=== PATIENT | male | born 1960 | race Caucasian/White ===

== ENCOUNTER 2016-11-04 06:05 | Inpatient (IN) | payer SELFPAY ==
--- NOTE | 2016-11-04 06:21 | EDM.PDOC ---
<Andrea Rod - Last Filed: 11/04/16 06:56> ED HPI GENERAL MEDICAL PROBLEM - General Chief Complaint: Chest Pain Stated Complaint: CHEST PAINS Time Seen by Provider: 11/04/16 06:18 Source of Information: Reports: Patient - History of Present Illness INITIAL COMMENTS - FREE TEXT/NARRATIVE: he presents with 24 hour history of upper abdominal pain. He has had some slight nausea and a feeling of slight dyspnea and a feeling of irregular rhythm. He has tried alleve and aspirin without improvement. pain has been constant for over 24 hours and seems to radiate towards the chest. chest/epigastric Pain Score (Numeric/FACES): 10 - Related Data Allergies Allergy/AdvReac Type Severity Reaction Status Date / Time fentanyl Allergy Anaphylactic Verified 11/04/16 06:10 Shock prochlorperazine Allergy Anaphylactic Verified 11/04/16 06:10 [From Compazine] Shock flu shot Allergy Anaphylactic Uncoded 11/04/16 06:10 Shock Home Meds: Home Meds . [No Known Home Meds] 11/04/16 [History] Past Medical History Cardiovascular History: Reports: Arrhythmia. Denies: CAD, Heart Failure, High Cholesterol, Hypertension, [place] Respiratory History: Denies: COPD Gastrointestinal History: Denies: Cirrhosis Genitourinary History: Denies: Chronic Renal Insuffiency Musculoskeletal History: Denies: RA Neurological History: Denies: CVA, MS Endocrine/Metabolic History: Denies: Diabetes, Type I, Diabetes, Type II Social & Family History - Tobacco Use Smoking Status *Q: Current Every Day Smoker - Alcohol Use Alcohol Use Comment: he states that his last drink was about 4 days ago. He sometimes drinks about 3 beers in a day but does not drink alcohol everyday. ED ROS GENERAL - Review of Systems Review Of Systems: See Below Constitutional: Denies: Fever, Chills Respiratory: Reports: Shortness of Breath. Denies: Cough Cardiovascular: Reports: Chest Pain GI/Abdominal: Reports: Nausea. Denies: Black Stool, Bloody Stool, Hematemesis, Hematochezia ED EXAM, GI/ABD - Physical Exam Exam: See Below General Appearance: Alert, No Apparent Distress Throat/Mouth: Other (dental decay) Respiratory/Chest: No Respiratory Distress, Lungs Clear Cardiovascular: Regular Rate, Rhythm, No Murmur GI/Abdominal: Soft, Tenderness (moderate diffuse upper abdominal tenderness; positive Sood's sign) Neurological: Alert, Oriented Comments: ekg: sinus tachycardia rate 203/minute; no ST changes suggestive of ischemia or injury Course - Vital Signs Last Recorded V/S: Last Vital Signs Temp 36.6 C 11/04/16 06:10 Pulse 95 11/04/16 08:53 Resp 18 11/04/16 08:53 BP 144/101 H 11/04/16 08:53 Pulse Ox 93 L 11/04/16 08:53 - Orders/Labs/Meds Orders: Active Orders 24 hr Category Date Time Status Patient Status [ADT] Stat ADT 11/04/16 09:02 Active EKG 12 Lead [EKG Documentation Completion] [RC] STAT Care 11/04/16 06:29 Active EKG 12 Lead [EKG Documentation Completion] [RC] STAT Care 11/04/16 08:00 Active Abdomen Pelvis w Cont [CT] Stat Exams 11/04/16 08:59 Ordered CXR [Chest 1V Frontal] [CR] Stat Exams 11/04/16 06:29 Taken CULTURE BLOOD [BC] Stat Lab 11/04/16 08:05 Received CULTURE BLOOD [BC] Stat Lab 11/04/16 08:16 Received Sodium Chloride 0.9% [Normal Saline] 1,000 ml Med 11/04/16 08:59 Active IV .Bolus Sodium Chloride 0.9% [Saline Flush] Med 11/04/16 06:26 Active 10 ml FLUSH ASDIRECTED PRN Sodium Chloride 0.9% [Saline Flush] Med 11/04/16 06:26 Active 2.5 ml FLUSH ASDIRECTED PRN Blood Culture x2 Reflex Set [OM.PC] Stat Oth 11/04/16 07:57 Ordered Saline Lock Insert [OM.PC] Stat Oth 11/04/16 06:26 Ordered Medication Orders Sodium Chloride (Normal Saline) 1,000 mls @ 999 mls/hr IV .Bolus ONE Stop: 11/04/16 09:59 Last Admin: 11/04/16 09:02 Dose: 999 mls/hr Sodium Chloride (Saline Flush) 10 ml FLUSH ASDIRECTED PRN PRN Reason: Keep Vein Open Sodium Chloride (Saline Flush) 2.5 ml FLUSH ASDIRECTED PRN PRN Reason: Keep Vein Open Labs: Laboratory Tests 06/11/04/16 11/04/16 Range/Units 06:11 06:11 06:11 WBC 20.45 H (4.0-11.0) K/uL RBC 5.78 (4.50-5.90) M/uL Hgb 19.5 H (13.0-17.0) g/dL Hct 53.8 H (38.0-50.0) % MCV 93.1 (80.0-98.0) fL MCH 33.7 H (27.0-32.0) pg MCHC 36.2 (31.0-37.0) g/dL RDW Std Deviation 46.7 (28.0-62.0) fl RDW Coeff of Nicolasa 14 (11.0-15.0) % Plt Count 163 (150-400) K/uL MPV 11.60 (7.40-12.00) fL Neut % (Auto) 84.3 H (48.0-80.0) % Lymph % (Auto) 9.0 L (16.0-40.0) % [place] % (Auto) 6.5 (0.0-15.0) % Eos % (Auto) 0.1 (0.0-7.0) % Baso % (Auto) 0.1 (0.0-1.5) % Neut # (Auto) 17.2 H (1.4-5.7) K/uL Lymph # (Auto) 1.8 (0.6-2.4) K/uL [place] # (Auto) 1.3 H (0.0-0.8) K/uL Eos # (Auto) 0.0 (0.0-0.7) K/uL Baso # (Auto) 0.0 (0.0-0.1) K/uL Nucleated RBC % 0.0 /100WBC Nucleated RBCs # 0 K/uL Lactate (0.20-2.00) mmol/L Sodium 135 L (136-146) mmol/L Potassium 4.0 (3.5-5.1) mmol/L Chloride 100 (98-110) mmol/L Carbon Dioxide 21 (21-31) mmol/L BUN 15 (6.0-23.0) mg/dL Creatinine 0.9 (0.6-1.5) mg/dL Est Cr Clr Drug Dosing 88.67 mL/min Estimated GFR (MDRD) > 60.0 ml/min Glucose 120 H (60-110) mg/dL Calcium 9.8 (8.8-10.8) mg/dL Magnesium 1.8 (1.5-2.3) mEq/L Total Bilirubin 1.1 (0.1-1.5) mg/dL AST 25 (5-40) IU/L ALT 40 (8-54) IU/L Alkaline Phosphatase 96 (40-150) Troponin I < 0.10 (0.0-0.29) NG/ML Total Protein 8.7 H (6.0-8.0) g/dL Albumin 4.7 (3.5-5.0) g/dL Globulin 4.0 H (2.0-3.5) g/dL Albumin/Globulin Ratio 1.2 L (1.3-2.8) Amylase 101 H (10-90) U/L Lipase 186 H (7-80) U/L Urine Color Urine Appearance Urine pH (5.0-8.0) Ur Specific [place] (1.001-1.035) Urine Protein (NEGATIVE) mg/dL Urine Glucose (UA) (NEGATIVE) mg/dL Urine Ketones (NEGATIVE) mg/dL Urine Occult Blood (NEGATIVE) Urine Nitrite (NEGATIVE) Urine Bilirubin (NEGATIVE) Urine Urobilinogen (<2.0) EU/dL Ur Leukocyte Esterase (NEGATIVE) Urine RBC (0-2/HPF) Urine WBC (0-5/HPF) Ur Epithelial Cells (NONE-FEW) Amorphous Sediment (NEGATIVE) Urine Bacteria (NEGATIVE) 11/04/16 11/04/16 Range/Units 08:00 08:16 WBC (4.0-11.0) K/uL RBC (4.50-5.90) M/uL Hgb (13.0-17.0) g/dL Hct (38.0-50.0) % MCV (80.0-98.0) fL MCH (27.0-32.0) pg MCHC (31.0-37.0) g/dL RDW Std Deviation (28.0-62.0) fl RDW Coeff of Nicolasa (11.0-15.0) % Plt Count (150-400) K/uL MPV (7.40-12.00) fL Neut % (Auto) (48.0-80.0) % Lymph % (Auto) (16.0-40.0) % [place] % (Auto) (0.0-15.0) % Eos % (Auto) (0.0-7.0) % Baso % (Auto) (0.0-1.5) % Neut # (Auto) (1.4-5.7) K/uL Lymph # (Auto) (0.6-2.4) K/uL [place] # (Auto) (0.0-0.8) K/uL Eos # (Auto) (0.0-0.7) K/uL Baso # (Auto) (0.0-0.1) K/uL Nucleated RBC % /100WBC Nucleated RBCs # K/uL Lactate 1.2 (0.20-2.00) mmol/L Sodium (136-146) mmol/L Potassium (3.5-5.1) mmol/L Chloride (98-110) mmol/L Carbon Dioxide (21-31) mmol/L BUN (6.0-23.0) mg/dL Creatinine (0.6-1.5) mg/dL Est Cr Clr Drug Dosing mL/min Estimated GFR (MDRD) ml/min Glucose (60-110) mg/dL Calcium (8.8-10.8) mg/dL Magnesium (1.5-2.3) mEq/L Total Bilirubin (0.1-1.5) mg/dL AST (5-40) IU/L ALT (8-54) IU/L Alkaline Phosphatase (40-150) Troponin I (0.0-0.29) NG/ML Total Protein (6.0-8.0) g/dL Albumin (3.5-5.0) g/dL Globulin (2.0-3.5) g/dL Albumin/Globulin Ratio (1.3-2.8) Amylase (10-90) U/L Lipase (7-80) U/L Urine Color YELLOW Urine Appearance CLEAR Urine pH 6.0 (5.0-8.0) Ur Specific [place] >= 1.030 (1.001-1.035) Urine Protein 30 (NEGATIVE) mg/dL Urine Glucose (UA) NEGATIVE (NEGATIVE) mg/dL Urine Ketones NEGATIVE (NEGATIVE) mg/dL Urine Occult Blood NEGATIVE (NEGATIVE) Urine Nitrite NEGATIVE (NEGATIVE) Urine Bilirubin NEGATIVE (NEGATIVE) Urine Urobilinogen 0.2 (<2.0) EU/dL Ur Leukocyte Esterase NEGATIVE (NEGATIVE) Urine RBC 0-2 (0-2/HPF) Urine WBC 0-1 (0-5/HPF) Ur Epithelial Cells FEW (NONE-FEW) Amorphous Sediment FEW (NEGATIVE) Urine Bacteria FEW (NEGATIVE) Meds: Medications Generic Name Dose Route Start Last Admin Trade Name Freq PRN Reason Stop Dose Admin Sodium Chloride 1,000 mls @ 999 mls/hr 11/04/16 08:59 11/04/16 09:02 Normal Saline IV 11/04/16 09:59 999 mls/hr .Bolus ONE Administration Sodium Chloride 10 ml 11/04/16 06:26 Saline Flush FLUSH ASDIRECTED PRN Keep Vein Open Sodium Chloride 2.5 ml 11/04/16 06:26 Saline Flush FLUSH ASDIRECTED PRN Keep Vein Open Discontinued Medications Generic Name Dose Route Start Last Admin Trade Name Freq PRN Reason Stop Dose Admin Acetaminophen 500 mg 11/04/16 06:49 11/04/16 06:56 Tylenol Extra Strength PO 11/04/16 06:50 500 mg ONETIME ONE Administration Diphenhydramine HCl 25 mg 11/04/16 06:49 11/04/16 06:55 Benadryl IVPUSH 11/04/16 06:50 25 mg ONETIME ONE Administration Hydralazine HCl 10 mg 11/04/16 08:09 11/04/16 08:13 Apresoline IVPUSH 11/04/16 08:10 10 mg ONETIME ONE Administration Hydromorphone HCl 1 mg 11/04/16 08:42 11/04/16 08:47 Dilaudid IVPUSH 11/04/16 08:43 1 mg ONETIME ONE Administration Morphine Sulfate 4 mg 11/04/16 06:26 11/04/16 06:34 Morphine IVPUSH 11/04/16 06:27 4 mg ONETIME ONE Administration Nitroglycerin 1 gm 11/04/16 06:47 11/04/16 06:56 Nitro-Bid 2% TOP 11/04/16 06:48 1 gm ONETIME ONE Administration Ondansetron HCl 4 mg 11/04/16 06:26 11/04/16 06:34 Zofran IVPUSH 11/04/16 06:27 4 mg ONETIME ONE Administration Ondansetron HCl 4 mg 11/04/16 08:42 11/04/16 08:47 Zofran IVPUSH 11/04/16 08:43 4 mg ONETIME ONE Administration Sucralfate 1 gm 11/04/16 06:26 11/04/16 06:42 Carafate PO 11/04/16 06:27 1 gm ONETIME ONE Administration - Radiology Interpretation Free Text/Narrative:: I discussed case with Dr Ramirez who will be accepting care. Andrea Rod MD Departure - Departure Disposition: Refer to Observation Clinical Impression: Abdominal pain, Hypertension - Discharge Information Forms: ED Department Discharge - My Orders Last 24 Hours: My Active Orders 11/04/16 07:57 Blood Culture x2 Reflex Set [OM.PC] Stat 11/04/16 08:00 EKG 12 Lead [EKG Documentation Completion] [RC] STAT 11/04/16 08:05 CULTURE BLOOD [BC] Stat 11/04/16 08:16 CULTURE BLOOD [BC] Stat 11/04/16 08:59 Abdomen Pelvis w Cont [CT] Stat Sodium Chloride 0.9% [Normal Saline] 1,000 ml IV .Bolus 11/04/16 09:02 Patient Status [ADT] Stat - Assessment/Plan Last 24 Hours: My Active Orders 11/04/16 07:57 Blood Culture x2 Reflex Set [OM.PC] Stat 11/04/16 08:00 EKG 12 Lead [EKG Documentation Completion] [RC] STAT 11/04/16 08:05 CULTURE BLOOD [BC] Stat 11/04/16 08:16 CULTURE BLOOD [BC] Stat 11/04/16 08:59 Abdomen Pelvis w Cont [CT] Stat Sodium Chloride 0.9% [Normal Saline] 1,000 ml IV .Bolus 11/04/16 09:02 Patient Status [ADT] Stat <Joseph Ramirez J - Last Filed: 11/04/16 09:11> Course - Vital Signs Text/Narrative:: Patient had recurrent epigastric abdominal pain labs were remarkable for leukocytosis with white count 20,000 slightly elevated amylase lipase and liver function tests patient will be admitted to medicine with consult general surgery CT abdomen and pelvis were ordered with IV contrast patient be transferred to floor CT will be reported to primary care/general surgery from floor patient is improvement of pain status post Lodder 1 mg and Zofran 4 mg Departure - Departure Time of Disposition: 09:10 Condition: Good
[2016-11-04] MEDS ORDERED: Sodium Chloride 0.9% 10 ML Syringe FLUSH PRN (06:26)
[2016-11-04] MEDS ORDERED: Sodium Chloride 0.9% 2.5 ML Syringe FLUSH PRN (06:26)
[2016-11-04] MEDS ORDERED: Morphine 2 MG/ML Syringe IVPUSH ONE (06:26)
[2016-11-04] MEDS ORDERED: Ondansetron 4 MG/2 ML SDV IVPUSH ONE ×2 (06:26→08:42)
[2016-11-04] MEDS ORDERED: Sucralfate Suspension 1 GM/10 ML Cup PO ONE (06:26)
[2016-11-04] MEDS ORDERED: Nitroglycerin 2% Oint 1 GM UD Packet TOP ONE (06:47)
[2016-11-04] MEDS ORDERED: diphenhydrAMINE 50 MG/ML SDV IVPUSH ONE (06:49)
[2016-11-04] MEDS ORDERED: Acetaminophen 500 MG Tab PO ONE (06:49)
[2016-11-04 06:50] LABS: CHLORIDE,CL 100 mmol/L (98-110); SODIUM,NA 135 mmol/L (136-146)
[2016-11-04] MEDS ORDERED: hydrALAZINE 20 MG/ML SDV IVPUSH ONE (08:09)
[2016-11-04] MEDS ORDERED: HYDROmorphone 1 MG/ML Syringe IVPUSH ONE (08:42)
--- NOTE | 2016-11-04 08:51 | US ---
EXAMINATION: Right upper quadrant ultrasound HISTORY: Pain COMPARISON: None TECHNIQUE: Grayscale and color Doppler images obtained of the right upper quadrant. FINDINGS: The pancreas is not well visualized. The liver is moderately increased in generalized ech otexture without a focal hepatic mass. Common bile duct measures 4 mm. The gallbladder wall thicknes s is normal. No pericholecystic fluid or shadowing gallstones. The right kidney measures 11.7 cm sanjuana e-to-pole without evidence of hydronephrosis. There is no abdominal ascites. Sonographic Sood sign is reported positive. IMPRESSION: 1. Reported positive sonographic Sood sign without secondary signs of cholecystitis. 2. Moderate fatty infiltration of the liver.
[2016-11-04] MEDS ORDERED: Sodium Chloride 0.9% 1,000 ML IV ONE ×3 (08:59→10:21)
[2016-11-04] MEDS ORDERED: Iopamidol 755 MG/ML 500 ML Multipack Bottle IVPUSH STA (09:55)
--- NOTE | 2016-11-04 09:55 | CR ---
EXAM DATE: 11/04/16 PATIENT'S AGE: 56 Patient: [facility] Facility: [place], [place] Site . Site : [id number] Study: XRay Chest [id number]/29/2017 6:55:33 AM Ordering Physician: Doctor Zurita Final Report: INDICATION: Shortness of breath. Upper abdominal pain. COMPARISON: none TECHNIQUE: Portable AP erect chest performed at 6:48 a.m. FINDINGS: The lungs are clear. There is no evidence of pneumothorax or free intraperitoneal air. The heart, mediastinum and pulmonary vessels are of normal size. There is no evidence of pleural fluid. IMPRESSION: Negative chest. Dictated by Joseph Velásquez MD @ Nov 04 2016 6:58AM (Electronic Signature) Report Signed by Proxy. DELMY
--- NOTE | 2016-11-04 10:40 | CT ---
CT of the abdomen and pelvis with contrast. HISTORY: Left upper quadrant pain TECHNIQUE: Axial CT images were obtained of the abdomen and pelvis following administration of 100 m L of Isovue-370 in the right hand without complication. Coronal and sagittal reconstructions obtaine d. FINDINGS: There is atelectasis noted within the lung bases. There is a small hiatal hernia. Tiny cyst within the left hepatic lobe otherwise the liver appears unremarkable. Spleen, adrenal gla nds, and gallbladder appear normal. There is stranding within the left upper quadrant with a low-den sity area within the tail of the pancreas. There is a filling defect noted within the adjacent splen ic vein. No bulky retroperitoneal lymphadenopathy. No organized fluid collection. The kidneys enhance and function symmetrically without evidence of obstructive uropathy. The large and small bowel are normal in caliber without evidence of obstruction. No pericolonic infl ammation or stranding. The appendix appears normal. There is no bulky pelvic lymphadenopathy. The ur inary bladder is mostly decompressed. The prostate is mildly prominent. No suspicious osseous abnormalities identified. IMPRESSION: 1. Moderate stranding near the tail of the pancreas with a hypoenhancing component noted within the tail of the pancreas. 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 Follow-up imaging may be be neficial to rule out an underlying neoplastic process. 2. 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 3. Small hiatal hernia. 4. Mild prostatomegaly.
--- NOTE | 2016-11-04 12:25 | PCM.HP ---
H&P History of Present Illness - General Date of Service: 11/04/16 Admit Problem/Dx: Acute pancreatitis Source of Information: Patient History Limitations: Reports: No Limitations - History of Present Illness Initial Comments - Free Text/Narative: This 56 year old male, otherwise healthy, presented to the ED with complaints of abdominal pain. He reports this pain started on Tuesday morning, sort of dull in nature, it waxed and waned intermittently throughout the weekend and then yesterday morning it worsened to 10/10 sharp shooting pain. He reports same nausea with emesis x1. He did not eat anything since yesterday. He reports fevers at home measuring 101, he would take tylenol and then it would improve and slowly climb again. He reports nothing makes the pain better, but movement and breathing increases the pain. He confirms alcohol use, but drinks 2-3 beers 1-2 x per week, but denies daily drinking. He does smoke 1/2 ppk and denies recreational drug use. He cuco any cardiac or pumonary history. No DM or liver or renal disease. His father had a hx of cancer, but the source was not known due to the extensive nature of it when it was diagnosed. In the ED, leukocytosis noted, 20,450, hgb 19.5 Hct 53.8, amylase 101, lipase 186, U negative. Lactate 1.2, Glucose 120. Abdominal U/S obtained with showed common bile duct 4mm, no cholelithasis or gallbladder wall thickening. CT abdomen was also obtained which reported moderate stranding near the tail of the pancreas with a hypoechancing component noted with the tail of the pancreas , likely representing pancreatitis with necrosis, follow up imaging maybe beneficial to rule out underlying neoplastic process, also noted is a partial thrombus of the adjacent splenic vein, small hiatal hernia and mild prostatomegaly. He was admitted for acute pancreatitis and acute partial thrombis in splenic vein. Has no current PCP. chest/epigastric Pain Score (Numeric/FACES): 3 - Related Data Allergies/Adverse Reactions: Allergies Allergy/AdvReac Type Severity Reaction Status Date / Time fentanyl Allergy Itching Verified 11/04/16 10:59 prochlorperazine Allergy Anaphylactic Verified 11/04/16 06:10 [From Compazine] Shock flu shot Allergy Anaphylactic Uncoded 11/04/16 06:10 Shock Home Medications: Home Meds Acetaminophen [Tylenol Extra Strength] 1,000 mg PO PRN 11/04/16 [History] Aspirin [Lo-Dose Aspirin EC] 81 mg PO DAILY 11/04/16 [History] Naproxen Sodium [Aleve] 220 mg PO PRN 11/04/16 [History] Past Medical History HEENT History: Reports: Hard of Hearing Cardiovascular History: Reports: Arrhythmia (unknown type, but "happens rarely". ). Denies: Blood Clots/VTE/DVT, Heart Failure, High Cholesterol, Hypertension, MD Respiratory History: Reports: None. Denies: Asthma, COPD, PE Gastrointestinal History: Reports: None. Denies: Bowel Obstruction, GERD, GI Bleed, Inflammatory Bowel Disease, Irritable Bowel Syndrome, Pancreatitis Genitourinary History: Reports: None. Denies: Chronic Renal Insuffiency Musculoskeletal History: Reports: Arthritis, Fracture Other Musculoskeletal History: Voices multiple fractures Neurological History: Reports: None. Denies: CVA, Headaches, Chronic, MS Endocrine/Metabolic History: Denies: Diabetes, Type I, Diabetes, Type II, Hypothyroidism Hematologic History: Denies: Anticoagulation Therapy, Autoimmune Thrombocytopenic Purpura, Bleeding Disorder - Infectious Disease History Infectious Disease History: Reports: Chicken Pox, Measles, Mumps - Past Surgical History HEENT Surgical History: Reports: Adenoidectomy, Tonsillectomy Cardiovascular Surgical History: Reports: None GI Surgical History: Reports: Hernia, Abdominal Male Surgical History: Reports: None Musculoskeletal Surgical History: Reports: Hip Replacement Other Musculoskeletal Surgeries/Procedures:: Partial right hip joint replacement Social & Family History - Family History Family Medical History: Noncontributory - Tobacco Use Smoking Status *Q: Current Every Day Smoker Years of Tobacco use: 30 Packs/Tins Daily: 0.5 Used Tobacco, but Quit: No Second Hand Smoke Exposure: No - Caffeine Use Caffeine Use: Reports: Coffee, Energy Drinks - Alcohol Use Date of Last Drink: 10/30/16 Time of Last Drink: 20:00 Alcohol Use Frequency: Weekly (1-2 x per week.) - Recreational Drug Use Recreational Drug Use: No - Living Situation & Occupation Living situation: Reports: ( in [facility] 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 Denies: Headaches, Sinus Congestion, Sore Throat Pulmonary: Reports: No Symptoms. Denies: Shortness of Breath Cardiovascular: Reports: Chest Pain (radiates to chest from abdomen) Gastrointestinal: Reports: Abdominal Pain, Decreased Appetite, Distension, Nausea, Vomiting. Denies: Black Stool, Bloody Stool Genitourinary: Reports: No Symptoms. Denies: Dysuria, Frequency, Burning, Pain Musculoskeletal: Reports: No Symptoms. Denies: Neck Pain Skin: Reports: No Symptoms. Denies: Pallor, Rash Psychiatric: Reports: No Symptoms. Denies: Confusion Neurological: Reports: No Symptoms. Denies: Confusion Hematologic/Lymphatic: Reports: No Symptoms. Denies: Easy Bleeding Immunologic: Reports: No Symptoms Exam - Exam Exam: See Below - Vital Signs Vital Signs: Last Vital Signs Temp 96 F 11/04/16 10:00 Pulse 101 H 11/04/16 10:00 Resp 18 11/04/16 10:00 BP 146/91 H 11/04/16 10:00 Pulse Ox 96 11/04/16 10:00 Weight: 87.18 kg - Exam General: Alert, Oriented, Cooperative, Other (non toxic appearing) HEENT: Conjunctiva Clear, Mucosa Moist & [place], Pupils Equal, Pupils Reactive, Other (missing teeth, broken teeth ) Neck: Supple, +2 Carotid Pulse wo Bruit, Full Range of Motion. No: Lymphadenopathy, JVD Lungs: Clear to Auscultation, Normal Respiratory Effort Cardiovascular: Regular Rate, Regular Rhythm, Normal S1, Normal S2. No: Irregular Rhythm, Tachycardia, Systolic Murmur Abdomen: Normal Bowel Sounds, Soft, Tenderness (diffuse, mostly located to epigastric region and radiates to back and lower abdomen.) Rectal (Males) Exam: Normal Exam, Normal Rectal Tone, Heme - Stool. No: Black Stool, Bloody Stool, Hemorrhoids Extremities: Normal Inspection, Normal Pulses. No: Calf Tenderness, Edema Skin: Warm, Dry, Intact Neurological: Cranial Nerves Intact Neuro Extensive - Mental Status: Alert, Oriented x3, Normal Mood/Affect, Normal Cognition Neuro Extensive - Motor, Sensory, Reflexes: CN II-XII Intact Psychiatric: Alert, Normal Affect, Normal Mood - Patient Data Result Diagrams: 11/04/16 06:11 11/04/16 06:11 *Q Meaningful Use (ADM) - VTE *Q VTE Criteria *Q: - VTE Risk Assess *Q Each Risk Factor Represents 1 Point: Age 41 - 59 years Total Score 1 Point Risk Factors: 1 Each Risk Factor Represents 2 Points: None Total Score 2 Point Risk Factors: 0 Each Risk Factor Represents 3 Points: None Total Score 3 Point Risk Factors: 0 Each Risk Factor Represents 5 Points: None Total Score 5 Point Risk Factors: 0 Venous Thromboembolism Risk Factor Score *Q: 1 - Stroke *Q Stroke Criteria *Q: - AMI *Q AMI Criteria *Q: - Problem List (1) Acute pancreatitis with uninfected necrosis SNOMED Code(s): 761358969, 589091450 ICD Code: K85.91 - ACUTE PANCREATITIS WITH UNINFECTED NECROSIS, UNSPECIFIED Status: Acute Current Visit: Yes Qualifiers: Pancreatitis type: unspecified pancreatitis type Qualified Code(s): K85.91 - Acute pancreatitis with uninfected necrosis, unspecified (2) Splenic vein thrombosis SNOMED Code(s): 36786744 ICD Code: I82.890 - ACUTE EMBOLISM AND THROMBOSIS OF OTHER SPECIFIED VEINS Status: Acute Current Visit: Yes (3) Atypical chest pain SNOMED Code(s): 963067023 ICD Code: R07.89 - OTHER CHEST PAIN Status: Acute Current Visit: Yes (4) Hypertension SNOMED Code(s): 05259421 ICD Code: I10 - ESSENTIAL (PRIMARY) HYPERTENSION Status: Acute Current Visit: Yes Qualifiers: Hypertension type: essential hypertension Qualified Code(s): I10 - Essential (primary) hypertension Problem List Initiated/Reviewed/Updated: Yes Orders Last 24hrs: Active Orders 24 hr Category Date Time Status NPO [Nothing Per Oral Diet] [DIET] Diet 11/04/16 Dinner Active CBC WITH AUTO DIFF [HEME] DAILY Lab 11/05/16 05:00 Ordered CBC WITH AUTO DIFF [HEME] DAILY Lab 11/06/16 05:00 Ordered CBC WITH AUTO DIFF [HEME] DAILY Lab 11/07/16 05:00 Ordered CBC WITH AUTO DIFF [HEME] DAILY Lab 11/08/16 05:00 Ordered COMPREHENSIVE METABOLIC PN,CMP [CHEM] DAILY Lab 11/05/16 05:00 Ordered COMPREHENSIVE METABOLIC PN,CMP [CHEM] DAILY Lab 11/06/16 05:00 Ordered COMPREHENSIVE METABOLIC PN,CMP [CHEM] DAILY Lab 11/07/16 05:00 Ordered COMPREHENSIVE METABOLIC PN,CMP [CHEM] DAILY Lab 11/08/16 05:00 Ordered HYDROmorphone [Dilaudid] Med 11/04/16 12:06 Active 1 mg IVPUSH Q2H PRN Medication Orders Hydromorphone HCl (Dilaudid) 1 mg IVPUSH Q2H PRN PRN Reason: Pain Sodium Chloride (Normal Saline) 1,000 mls @ 200 mls/hr IV ASDIRECTED LUIS CARLOS Sodium Chloride (Saline Flush) 10 ml FLUSH ASDIRECTED PRN PRN Reason: Keep Vein Open Sodium Chloride (Saline Flush) 2.5 ml FLUSH ASDIRECTED PRN PRN Reason: Keep Vein Open Assessment/Plan Comment:: This 56 year old male admitted for acute pancreatitis and splenic vein thrombosis 1. Acute pancreatitis with necrosis: Given total of 3 L bolus upon arrival. Will continue with fluid resuscitation at NS 200 ml/hr. Analgesia. Takes no home medications, triglycerides elevated 389, does drink alcohol but does not admit to excessive use, no gall bladder disease noted and no history of. NPO for now, anti-emetics PRN. He was notified of needing follow up imaging and aware of CT findings. Will monitor leukocytosis for now, no antibiotics unless he becomes febrile. No documented fevers since ED admission. Monitor labs in am. Will recheck hgb this evening. 2. Splenic vein thrombosis: No hx of. Hemoccult, negative will place on Lovenox 1mg/kg BID in the short term to decrease propagation of current partial thrombosis. Will monitor. 3. Chest pain: Possible radiation from pancreatitis. Will monitor on telemetry, trend troponins. 4. HTN: New, may be acute due to pain. Lopressor IV PRN, monitor closely. Dispo: 3-4 days pending improvement.
[2016-11-04] MEDS: HYDROmorphone 1 MG/ML Syringe IVPUSH PRN ×5 (12:29→22:23)
[2016-11-04] MEDS: Sodium Chloride 0.9% 1,000 ML IV SCH ×3 (12:37→22:15)
[2016-11-04] MEDS ORDERED: Metoprolol Tartrate 5 MG/5 ML SDV IVPUSH PRN (14:10)
[2016-11-04] MEDS ORDERED: Albuterol/Ipratropium 3.0-0.5 MG/3 ML Neb Soln NEB PRN (14:25)
[2016-11-04] MEDS: Enoxaparin 100 MG/1 ML Syringe SUBCUT SCH ×2 (14:31→22:13)
[2016-11-04] MEDS: Ondansetron 4 MG/2 ML SDV IVPUSH PRN (22:21)
[2016-11-05] MEDS: HYDROmorphone 1 MG/ML Syringe IVPUSH PRN ×9 (00:55→23:22)
[2016-11-05] MEDS: Sodium Chloride 0.9% 1,000 ML IV SCH ×5 (03:16→23:28)
[2016-11-05] MEDS: Ondansetron 4 MG/2 ML SDV IVPUSH PRN ×2 (03:55→09:54)
[2016-11-05 06:12] LABS: CHLORIDE,CL 106 mmol/L (98-110); SODIUM,NA 138 mmol/L (136-146)
--- NOTE | 2016-11-05 08:01 | PCM.PN ---
- General Info Date of Service: 11/05/16 Admission Dx/Problem (Free Text): Acute pancreatitis Subjective Update: Pain improving slightly, now 5/10. No longer feeling nauseated. Has no chest pain or SOB. No fevers noted. Functional Status: Reports: pain controlled, ambulating, urinating - Review of Systems General: Reports: No Symptoms. Denies: Fever HEENT: Denies: sinus congestion, sore throat Pulmonary: Reports: no symptoms. Denies: shortness of breath, cough, sputum Cardiovascular: Denies: Chest Pain, Palpitations, Edema Gastrointestinal: Reports: Abdominal pain (diffuse, located to LUQ and epigastric region, radiates to mid back), Flatus. Denies: Nausea, Vomiting Genitourinary: Reports: no symptoms. Denies: dysuria, frequency, burning Musculoskeletal: Reports: back pain Skin: Reports: no symptoms Neurological: Reports: No Symptoms Psychiatric: Reports: no symptoms - Patient Data Vitals - most recent: Last Vital Signs Temp 99.2 F 11/05/16 04:00 Pulse 97 11/04/16 16:00 Resp 19 11/05/16 04:00 BP 142/91 H 11/05/16 04:00 Pulse Ox 92 L 11/05/16 04:00 Weight - most recent: 87.18 kg I&O - last 24 hours: Intake & Output 11/04/16 11/05/16 11/05/16 22:59 06:59 14:59 Intake Total 4881 1000 Output Total 0 975 Balance 4881 25 Lab Results last 24 hrs: Laboratory Results - last 24 hr 11/04/16 11/04/16 11/04/16 Range/Units 14:19 20:14 20:14 WBC (4.0-11.0) K/uL RBC (4.50-5.90) M/uL Hgb 15.0 (13.0-17.0) g/dL Hct 43.7 (38.0-50.0) % MCV (80.0-98.0) fL MCH (27.0-32.0) pg MCHC (31.0-37.0) g/dL RDW Std Deviation (28.0-62.0) fl RDW Coeff of Nicolasa (11.0-15.0) % Plt Count (150-400) K/uL MPV (7.40-12.00) fL Neut % (Auto) (48.0-80.0) % Lymph % (Auto) (16.0-40.0) % [place] % (Auto) (0.0-15.0) % Eos % (Auto) (0.0-7.0) % Baso % (Auto) (0.0-1.5) % Neut # (Auto) (1.4-5.7) K/uL Lymph # (Auto) (0.6-2.4) K/uL [place] # (Auto) (0.0-0.8) K/uL Eos # (Auto) (0.0-0.7) K/uL Baso # (Auto) (0.0-0.1) K/uL Nucleated RBC % /100WBC Nucleated RBCs # K/uL Sodium (136-146) mmol/L Potassium (3.5-5.1) mmol/L Chloride (98-110) mmol/L Carbon Dioxide (21-31) mmol/L BUN (6.0-23.0) mg/dL Creatinine (0.6-1.5) mg/dL Est Cr Clr Drug Dosing mL/min Estimated GFR (MDRD) ml/min Glucose (60-110) mg/dL Calcium (8.8-10.8) mg/dL Total Bilirubin (0.1-1.5) mg/dL AST (5-40) IU/L ALT (8-54) IU/L Alkaline Phosphatase (40-150) Troponin I < 0.10 < 0.10 (0.0-0.29) NG/ML Total Protein (6.0-8.0) g/dL Albumin (3.5-5.0) g/dL Globulin (2.0-3.5) g/dL Albumin/Globulin Ratio (1.3-2.8) 11/05/16 11/05/16 Range/Units 04:38 04:38 WBC 18.55 H (4.0-11.0) K/uL RBC 4.43 L (4.50-5.90) M/uL Hgb 14.5 (13.0-17.0) g/dL Hct 42.9 (38.0-50.0) % MCV 96.8 (80.0-98.0) fL MCH 32.7 H (27.0-32.0) pg MCHC 33.8 (31.0-37.0) g/dL RDW Std Deviation 52.5 (28.0-62.0) fl RDW Coeff of Nicolasa 15 (11.0-15.0) % Plt Count 147 L (150-400) K/uL MPV 12.40 H (7.40-12.00) fL Neut % (Auto) 87.1 H (48.0-80.0) % Lymph % (Auto) 6.3 L (16.0-40.0) % [place] % (Auto) 6.4 (0.0-15.0) % Eos % (Auto) 0.1 (0.0-7.0) % Baso % (Auto) 0.1 (0.0-1.5) % Neut # (Auto) 16.2 H (1.4-5.7) K/uL Lymph # (Auto) 1.2 (0.6-2.4) K/uL [place] # (Auto) 1.2 H (0.0-0.8) K/uL Eos # (Auto) 0.0 (0.0-0.7) K/uL Baso # (Auto) 0.0 (0.0-0.1) K/uL Nucleated RBC % 0.0 /100WBC Nucleated RBCs # 0 K/uL Sodium 138 (136-146) mmol/L Potassium 4.0 (3.5-5.1) mmol/L Chloride 106 (98-110) mmol/L Carbon Dioxide 20 L (21-31) mmol/L BUN 12 (6.0-23.0) mg/dL Creatinine 0.8 (0.6-1.5) mg/dL Est Cr Clr Drug Dosing 99.75 mL/min Estimated GFR (MDRD) > 60.0 ml/min Glucose 77 (60-110) mg/dL Calcium 7.8 L (8.8-10.8) mg/dL Total Bilirubin 1.5 (0.1-1.5) mg/dL AST 23 (5-40) IU/L ALT 24 (8-54) IU/L Alkaline Phosphatase 85 (40-150) Troponin I (0.0-0.29) NG/ML Total Protein 6.0 (6.0-8.0) g/dL Albumin 3.6 (3.5-5.0) g/dL Globulin 2.4 (2.0-3.5) g/dL Albumin/Globulin Ratio 1.5 (1.3-2.8) [place]on Results last 24 hrs: Microbiology 11/04/16 13:14 Stool Occult Blood (LARON) - Final Stool / Feces NEGATIVE OCCULT BLOOD Med Orders - Current: Current Medications Albuterol/Ipratropium (Duoneb 3.0-0.5 Mg/3 Ml) 3 ml NEB Q4HRRT PRN PRN Reason: Shortness Of Breath/wheezing Enoxaparin Sodium (Lovenox) 90 mg SUBCUT Q12HR LUIS CARLOS Last Admin: 11/04/16 22:13 Dose: 90 mg Hydromorphone HCl (Dilaudid) 1 mg IVPUSH Q2H PRN PRN Reason: Pain Last Admin: 11/05/16 06:59 Dose: 1 mg Sodium Chloride (Normal Saline) 1,000 mls @ 200 mls/hr IV ASDIRECTED LUIS CARLOS Last Admin: 11/05/16 03:16 Dose: 200 mls/hr Metoprolol Tartrate (Lopressor) 5 mg IVPUSH Q6H PRN PRN Reason: Hypertension Ondansetron HCl (Zofran) 4 mg IVPUSH Q4H PRN PRN Reason: Nausea Last Admin: 11/05/16 03:55 Dose: 4 mg Sodium Chloride (Saline Flush) 10 ml FLUSH ASDIRECTED PRN PRN Reason: Keep Vein Open Sodium Chloride (Saline Flush) 2.5 ml FLUSH ASDIRECTED PRN PRN Reason: Keep Vein Open Discontinued Medications Acetaminophen (Tylenol Extra Strength) 500 mg PO ONETIME ONE Stop: 11/04/16 06:50 Last Admin: 11/04/16 06:56 Dose: 500 mg Diphenhydramine HCl (Benadryl) 25 mg IVPUSH ONETIME ONE Stop: 11/04/16 06:50 Last Admin: 11/04/16 06:55 Dose: 25 mg Hydralazine HCl (Apresoline) 10 mg IVPUSH ONETIME ONE Stop: 11/04/16 08:10 Last Admin: 11/04/16 08:13 Dose: 10 mg Hydromorphone HCl (Dilaudid) 1 mg IVPUSH ONETIME ONE Stop: 11/04/16 08:43 Last Admin: 11/04/16 08:47 Dose: 1 mg Sodium Chloride (Normal Saline) 1,000 mls @ 999 mls/hr IV .Bolus ONE Stop: 11/04/16 09:59 Last Admin: 11/04/16 09:02 Dose: 999 mls/hr Sodium Chloride (Normal Saline) 1,000 mls @ 999 mls/hr IV .Bolus ONE Stop: 11/04/16 11:19 Last Admin: 11/04/16 10:27 Dose: 999 mls/hr Sodium Chloride (Normal Saline) 1,000 mls @ 999 mls/hr IV .Bolus ONE Stop: 11/04/16 11:21 Last Admin: 11/04/16 11:30 Dose: 999 mls/hr Iopamidol (Isovue Multipack-370 (76%)) 100 ml IVPUSH ONETIME STA Stop: 11/04/16 09:56 Last Admin: 11/04/16 09:56 Dose: 100 ml Morphine Sulfate (Morphine) 4 mg IVPUSH ONETIME ONE Stop: 11/04/16 06:27 Last Admin: 11/04/16 06:34 Dose: 4 mg Nitroglycerin (Nitro-Bid 2%) 1 gm TOP ONETIME ONE Stop: 11/04/16 06:48 Last Admin: 11/04/16 06:56 Dose: 1 gm Ondansetron HCl (Zofran) 4 mg IVPUSH ONETIME ONE Stop: 11/04/16 06:27 Last Admin: 11/04/16 06:34 Dose: 4 mg Ondansetron HCl (Zofran) 4 mg IVPUSH ONETIME ONE Stop: 11/04/16 08:43 Last Admin: 11/04/16 08:47 Dose: 4 mg Sucralfate (Carafate) 1 gm PO ONETIME ONE Stop: 11/04/16 06:27 Last Admin: 11/04/16 06:42 Dose: 1 gm - Exam General: alert, oriented, cooperative, no acute distress Neck: supple Lungs: Clear to auscultation, Normal respiratory effort Cardiovascular: Regular Rate, Regular Rhythm Abdomen: bowel sounds present, soft, no tenderness, tenderness (LUQ and epigastric), distension Extremities: no edema, normal pulses Neurological: no new focal deficit Psy/Mental Status: alert, normal affect, normal mood - Problem List & Annotations (1) Acute pancreatitis with uninfected necrosis SNOMED Code(s): 473356040, 395988781 Code(s): K85.91 - ACUTE PANCREATITIS WITH UNINFECTED NECROSIS, UNSPECIFIED Status: Acute Current Visit: Yes Qualifiers: Pancreatitis type: unspecified pancreatitis type Qualified Code(s): K85.91 - Acute pancreatitis with uninfected necrosis, unspecified (2) Splenic vein thrombosis SNOMED Code(s): 97102448 Code(s): I82.890 - ACUTE EMBOLISM AND THROMBOSIS OF OTHER SPECIFIED VEINS Status: Acute Current Visit: Yes (3) Atypical chest pain SNOMED Code(s): 359399183 Code(s): R07.89 - OTHER CHEST PAIN Status: Resolved Current Visit: Yes (4) Hypertension SNOMED Code(s): 78431118 Code(s): I10 - ESSENTIAL (PRIMARY) HYPERTENSION Status: Acute Current Visit: Yes Qualifiers: Hypertension type: essential hypertension Qualified Code(s): I10 - Essential (primary) hypertension - Problem List Review Problem List Initiated/Reviewed/Updated: Yes - My Orders Last 24 Hours: My Active Orders 11/04/16 12:06 HYDROmorphone [Dilaudid] 1 mg IVPUSH Q2H PRN 11/04/16 13:49 Notify Provider Consults [RC] ASDIRECTED 11/04/16 13:53 Telemetry Monitoring [Cardiac Monitoring] [RC] Q8H 11/04/16 14:02 Communication Order [RC] PRN 11/04/16 14:10 Metoprolol Tartrate [Lopressor] 5 mg IVPUSH Q6H PRN 11/04/16 14:15 Enoxaparin [Lovenox] 90 mg SUBCUT Q12HR 11/04/16 14:25 Intake and Output [RC] Q12H Up With Assistance [RC] ASDIRECTED VTE/DVT Education [RC] DAILY Vital Signs [RC] Q4H Albuterol/Ipratropium [DuoNeb 3.0-0.5 MG/3 ML] 3 ml NEB Q4HRRT PRN Ondansetron [Zofran] 4 mg IVPUSH Q4H PRN Resuscitation Status Routine 11/04/16 14:26 RT Aerosol Therapy [RC] ASDIRECTED 11/04/16 Dinner NPO [Nothing Per Oral Diet] [DIET] 11/06/16 05:00 CBC WITH AUTO DIFF [HEME] DAILY COMPREHENSIVE METABOLIC PN,CMP [CHEM] DAILY 11/07/16 05:00 CBC WITH AUTO DIFF [HEME] DAILY COMPREHENSIVE METABOLIC PN,CMP [CHEM] DAILY 11/08/16 05:00 CBC WITH AUTO DIFF [HEME] DAILY COMPREHENSIVE METABOLIC PN,CMP [CHEM] DAILY - Plan Plan:: This 56 year old male admitted for acute pancreatitis and splenic vein thrombosis 1. Acute pancreatitis with necrosis: Continue with fluid resuscitation at NS 200 ml/hr. Analgesia. Likely alcohol induced. Continue bowel rest., anti- emetics PRN. leukocytosis improving, no antibiotics unless he becomes febrile. Remains Afebrile. Monitor labs in am. 2. Splenic vein thrombosis: No hx of. Continue anticoagulation with Lovenox 1mg/ kg BID in the short term to decrease propagation of current partial thrombosis. Will monitor. 3. Chest pain: ACS ruled out.Troponins negative. 4. HTN: Has improved slight. Lopressor IV PRN, monitor closely. Conitnued elevation by be chronic or continued pain. Dispo: 3-4 days pending improvement.
[2016-11-05] MEDS: Enoxaparin 100 MG/1 ML Syringe SUBCUT SCH ×2 (08:33→20:55)
[2016-11-06] MEDS: HYDROmorphone 1 MG/ML Syringe IVPUSH PRN ×3 (02:06→07:40)
[2016-11-06] MEDS: Sodium Chloride 0.9% 1,000 ML IV SCH ×4 (04:37→20:14)
[2016-11-06 06:48] LABS: CHLORIDE,CL 107 mmol/L (98-110); SODIUM,NA 134 mmol/L (136-146)
[2016-11-06] MEDS: Enoxaparin 100 MG/1 ML Syringe SUBCUT SCH ×2 (08:16→20:29)
--- NOTE | 2016-11-06 10:56 | PCM.PN ---
- Review of Systems Systems Review Comment:: abdominal pain improving, mainly in left lower quadrant. - Patient Data Vitals - most recent: Last Vital Signs Temp 36.0 C 11/06/16 08:00 Pulse 95 11/06/16 08:00 Resp 16 11/06/16 08:00 BP 123/76 11/06/16 08:00 Pulse Ox 91 L 11/06/16 08:00 Weight - most recent: 87.18 kg I&O - last 24 hours: Intake & Output 11/05/16 11/06/16 11/06/16 22:59 06:59 14:59 Intake Total 2465 2450 1000 Output Total 535 460 Balance 1930 1990 1000 Lab Results last 24 hrs: Laboratory Results - last 24 hr 11/06/16 11/06/16 Range/Units 06:02 06:02 WBC 15.44 H (4.0-11.0) K/uL RBC 3.90 L (4.50-5.90) M/uL Hgb 12.4 L (13.0-17.0) g/dL Hct 38.3 (38.0-50.0) % MCV 98.2 H (80.0-98.0) fL MCH 31.8 (27.0-32.0) pg MCHC 32.4 (31.0-37.0) g/dL RDW Std Deviation 52.5 (28.0-62.0) fl RDW Coeff of Nicolasa 15 (11.0-15.0) % Plt Count 138 L (150-400) K/uL MPV 11.30 (7.40-12.00) fL Neut % (Auto) 80.9 H (48.0-80.0) % Lymph % (Auto) 8.7 L (16.0-40.0) % Keith % (Auto) 10.0 (0.0-15.0) % Eos % (Auto) 0.3 (0.0-7.0) % Baso % (Auto) 0.1 (0.0-1.5) % Neut # (Auto) 12.5 H (1.4-5.7) K/uL Lymph # (Auto) 1.3 (0.6-2.4) K/uL Keith # (Auto) 1.5 H (0.0-0.8) K/uL Eos # (Auto) 0.0 (0.0-0.7) K/uL Baso # (Auto) 0.0 (0.0-0.1) K/uL Nucleated RBC % 0.0 /100WBC Nucleated RBCs # 0 K/uL Sodium 134 L (136-146) mmol/L Potassium 3.7 (3.5-5.1) mmol/L Chloride 107 (98-110) mmol/L Carbon Dioxide 16 L (21-31) mmol/L BUN 12 (6.0-23.0) mg/dL Creatinine 0.7 (0.6-1.5) mg/dL Est Cr Clr Drug Dosing 114.00 mL/min Estimated GFR (MDRD) > 60.0 ml/min Glucose 82 (60-110) mg/dL Calcium 8.0 L (8.8-10.8) mg/dL Total Bilirubin 1.0 (0.1-1.5) mg/dL AST 20 (5-40) IU/L ALT 20 (8-54) IU/L Alkaline Phosphatase 67 (40-150) Total Protein 6.0 (6.0-8.0) g/dL Albumin 3.2 L (3.5-5.0) g/dL Globulin 2.8 (2.0-3.5) g/dL Albumin/Globulin Ratio 1.1 L (1.3-2.8) Lipase 51 (7-80) U/L Med Orders - Current: Current Medications Albuterol/Ipratropium (Duoneb 3.0-0.5 Mg/3 Ml) 3 ml NEB Q4HRRT PRN PRN Reason: Shortness Of Breath/wheezing Enoxaparin Sodium (Lovenox) 90 mg SUBCUT Q12HR [facility] Last Admin: 11/06/16 08:16 Dose: 90 mg Sodium Chloride (Normal Saline) 1,000 mls @ 200 mls/hr IV ASDIRECTED [facility] Last Admin: 11/06/16 09:46 Dose: 200 mls/hr Metoprolol Tartrate (Lopressor) 5 mg IVPUSH Q6H PRN PRN Reason: Hypertension Ondansetron HCl (Zofran) 4 mg IVPUSH Q4H PRN PRN Reason: Nausea Last Admin: 11/05/16 09:54 Dose: 4 mg Oxycodone HCl (Oxycodone) 5 mg PO Q4H PRN PRN Reason: Pain Sodium Chloride (Saline Flush) 10 ml FLUSH ASDIRECTED PRN PRN Reason: Keep Vein Open Sodium Chloride (Saline Flush) 2.5 ml FLUSH ASDIRECTED PRN PRN Reason: Keep Vein Open Discontinued Medications Acetaminophen (Tylenol Extra Strength) 500 mg PO ONETIME ONE Stop: 11/04/16 06:50 Last Admin: 11/04/16 06:56 Dose: 500 mg Diphenhydramine HCl (Benadryl) 25 mg IVPUSH ONETIME ONE Stop: 11/04/16 06:50 Last Admin: 11/04/16 06:55 Dose: 25 mg Hydralazine HCl (Apresoline) 10 mg IVPUSH ONETIME ONE Stop: 11/04/16 08:10 Last Admin: 11/04/16 08:13 Dose: 10 mg Hydromorphone HCl (Dilaudid) 1 mg IVPUSH ONETIME ONE Stop: 11/04/16 08:43 Last Admin: 11/04/16 08:47 Dose: 1 mg Hydromorphone HCl (Dilaudid) 1 mg IVPUSH Q2H PRN PRN Reason: Pain Last Admin: 11/06/16 07:40 Dose: 1 mg Sodium Chloride (Normal Saline) 1,000 mls @ 999 mls/hr IV .Bolus ONE Stop: 11/04/16 09:59 Last Admin: 11/04/16 09:02 Dose: 999 mls/hr Sodium Chloride (Normal Saline) 1,000 mls @ 999 mls/hr IV .Bolus ONE Stop: 11/04/16 11:19 Last Admin: 11/04/16 10:27 Dose: 999 mls/hr Sodium Chloride (Normal Saline) 1,000 mls @ 999 mls/hr IV .Bolus ONE Stop: 11/04/16 11:21 Last Admin: 11/04/16 11:30 Dose: 999 mls/hr Iopamidol (Isovue Multipack-370 (76%)) 100 ml IVPUSH ONETIME STA Stop: 11/04/16 09:56 Last Admin: 11/04/16 09:56 Dose: 100 ml Morphine Sulfate (Morphine) 4 mg IVPUSH ONETIME ONE Stop: 11/04/16 06:27 Last Admin: 11/04/16 06:34 Dose: 4 mg Nitroglycerin (Nitro-Bid 2%) 1 gm TOP ONETIME ONE Stop: 11/04/16 06:48 Last Admin: 11/04/16 06:56 Dose: 1 gm Ondansetron HCl (Zofran) 4 mg IVPUSH ONETIME ONE Stop: 11/04/16 06:27 Last Admin: 11/04/16 06:34 Dose: 4 mg Ondansetron HCl (Zofran) 4 mg IVPUSH ONETIME ONE Stop: 11/04/16 08:43 Last Admin: 11/04/16 08:47 Dose: 4 mg Sucralfate (Carafate) 1 gm PO ONETIME ONE Stop: 11/04/16 06:27 Last Admin: 11/04/16 06:42 Dose: 1 gm - Exam General: alert, oriented Lungs: Clear to auscultation, Normal respiratory effort Cardiovascular: Regular Rate, Regular Rhythm Abdomen: bowel sounds present, soft, no tenderness, no distension Extremities: no edema Skin: warm, dry, intact - Problem List Review Problem List Initiated/Reviewed/Updated: Yes - My Orders Last 24 Hours: My Active Orders 11/06/16 10:53 oxyCODONE 5 mg PO Q4H PRN - Plan Plan:: This 56 year old male admitted for acute pancreatitis and splenic vein thrombosis 1. Acute pancreatitis with necrosis: continue IV fluids and bowel rest, pain is improving. 2. Splenic vein thrombosis: on Lovenox 1mg/kg BID in the short term to decrease propagation of current partial thrombosis. Will monitor. Dispo: 3-4 days pending improvement.
[2016-11-06] MEDS: oxyCODONE 5 MG Tab PO PRN ×3 (11:32→20:31)
[2016-11-07] MEDS: Sodium Chloride 0.9% 1,000 ML IV SCH ×2 (01:28→06:37)
[2016-11-07] MEDS: oxyCODONE 5 MG Tab PO PRN (03:19)
[2016-11-07] MEDS: Ondansetron 4 MG/2 ML SDV IVPUSH PRN (03:19)
[2016-11-07 06:56] LABS: CHLORIDE,CL 106 mmol/L (98-110); SODIUM,NA 135 mmol/L (136-146)
[2016-11-07] MEDS: Enoxaparin 100 MG/1 ML Syringe SUBCUT SCH ×2 (08:34→20:50)
--- NOTE | 2016-11-07 12:02 | PCM.PN ---
- Review of Systems Systems Review Comment:: abdominal pain improving, reports constipation - Patient Data Vitals - most recent: Last Vital Signs Temp 36.1 C 11/07/16 08:00 Pulse 77 11/07/16 08:00 Resp 16 11/07/16 08:00 BP 150/92 H 11/07/16 08:00 Pulse Ox 92 L 11/07/16 08:00 Weight - most recent: 87.18 kg I&O - last 24 hours: Intake & Output 11/06/16 11/07/16 11/07/16 22:59 06:59 14:59 Intake Total 2999 2100 Output Total 880 1360 Balance 211 740 Lab Results last 24 hrs: Laboratory Results - last 24 hr 11/07/16 11/07/16 Range/Units 05:52 05:52 WBC 13.41 H (4.0-11.0) K/uL RBC 3.81 L (4.50-5.90) M/uL Hgb 12.3 L (13.0-17.0) g/dL Hct 36.6 L (38.0-50.0) % MCV 96.1 (80.0-98.0) fL MCH 32.3 H (27.0-32.0) pg MCHC 33.6 (31.0-37.0) g/dL RDW Std Deviation 50.8 (28.0-62.0) fl RDW Coeff of Nicolasa 14 (11.0-15.0) % Plt Count 171 (150-400) K/uL MPV 11.30 (7.40-12.00) fL Neut % (Auto) 79.1 (48.0-80.0) % Lymph % (Auto) 10.1 L (16.0-40.0) % Towns % (Auto) 10.2 (0.0-15.0) % Eos % (Auto) 0.4 (0.0-7.0) % Baso % (Auto) 0.2 (0.0-1.5) % Neut # (Auto) 10.6 H (1.4-5.7) K/uL Lymph # (Auto) 1.4 (0.6-2.4) K/uL Towns # (Auto) 1.4 H (0.0-0.8) K/uL Eos # (Auto) 0.1 (0.0-0.7) K/uL Baso # (Auto) 0.0 (0.0-0.1) K/uL Nucleated RBC % 0.0 /100WBC Nucleated RBCs # 0 K/uL Sodium 135 L (136-146) mmol/L Potassium 3.6 (3.5-5.1) mmol/L Chloride 106 (98-110) mmol/L Carbon Dioxide 18 L (21-31) mmol/L BUN 8 (6.0-23.0) mg/dL Creatinine 0.7 (0.6-1.5) mg/dL Est Cr Clr Drug Dosing 114.00 mL/min Estimated GFR (MDRD) > 60.0 ml/min Glucose 83 (60-110) mg/dL Calcium 7.9 L (8.8-10.8) mg/dL Total Bilirubin 0.9 (0.1-1.5) mg/dL AST 26 (5-40) IU/L ALT 23 (8-54) IU/L Alkaline Phosphatase 99 (40-150) Total Protein 5.7 L (6.0-8.0) g/dL Albumin 2.8 L (3.5-5.0) g/dL Globulin 2.9 (2.0-3.5) g/dL Albumin/Globulin Ratio 1.0 L (1.3-2.8) Med Orders - Current: Current Medications Albuterol/Ipratropium (Duoneb 3.0-0.5 Mg/3 Ml) 3 ml NEB Q4HRRT PRN PRN Reason: Shortness Of Breath/wheezing Enoxaparin Sodium (Lovenox) 90 mg SUBCUT Q12HR [facility] Last Admin: 11/07/16 08:34 Dose: 90 mg Metoprolol Tartrate (Lopressor) 5 mg IVPUSH Q6H PRN PRN Reason: Hypertension Ondansetron HCl (Zofran) 4 mg IVPUSH Q4H PRN PRN Reason: Nausea Last Admin: 11/07/16 03:19 Dose: 4 mg Oxycodone HCl (Oxycodone) 5 mg PO Q4H PRN PRN Reason: Pain Last Admin: 11/07/16 03:19 Dose: 5 mg Sodium Chloride (Saline Flush) 10 ml FLUSH ASDIRECTED PRN PRN Reason: Keep Vein Open Sodium Chloride (Saline Flush) 2.5 ml FLUSH ASDIRECTED PRN PRN Reason: Keep Vein Open Discontinued Medications Acetaminophen (Tylenol Extra Strength) 500 mg PO ONETIME ONE Stop: 11/04/16 06:50 Last Admin: 11/04/16 06:56 Dose: 500 mg Diphenhydramine HCl (Benadryl) 25 mg IVPUSH ONETIME ONE Stop: 11/04/16 06:50 Last Admin: 11/04/16 06:55 Dose: 25 mg Hydralazine HCl (Apresoline) 10 mg IVPUSH ONETIME ONE Stop: 11/04/16 08:10 Last Admin: 11/04/16 08:13 Dose: 10 mg Hydromorphone HCl (Dilaudid) 1 mg IVPUSH ONETIME ONE Stop: 11/04/16 08:43 Last Admin: 11/04/16 08:47 Dose: 1 mg Hydromorphone HCl (Dilaudid) 1 mg IVPUSH Q2H PRN PRN Reason: Pain Last Admin: 11/06/16 07:40 Dose: 1 mg Sodium Chloride (Normal Saline) 1,000 mls @ 999 mls/hr IV .Bolus ONE Stop: 11/04/16 09:59 Last Admin: 11/04/16 09:02 Dose: 999 mls/hr Sodium Chloride (Normal Saline) 1,000 mls @ 999 mls/hr IV .Bolus ONE Stop: 11/04/16 11:19 Last Admin: 11/04/16 10:27 Dose: 999 mls/hr Sodium Chloride (Normal Saline) 1,000 mls @ 999 mls/hr IV .Bolus ONE Stop: 11/04/16 11:21 Last Admin: 11/04/16 11:30 Dose: 999 mls/hr Sodium Chloride (Normal Saline) 1,000 mls @ 200 mls/hr IV ASDIRECTED [facility] Last Admin: 11/07/16 06:37 Dose: 200 mls/hr Iopamidol (Isovue Multipack-370 (76%)) 100 ml IVPUSH ONETIME STA Stop: 11/04/16 09:56 Last Admin: 11/04/16 09:56 Dose: 100 ml Morphine Sulfate (Morphine) 4 mg IVPUSH ONETIME ONE Stop: 11/04/16 06:27 Last Admin: 11/04/16 06:34 Dose: 4 mg Nitroglycerin (Nitro-Bid 2%) 1 gm TOP ONETIME ONE Stop: 11/04/16 06:48 Last Admin: 11/04/16 06:56 Dose: 1 gm Ondansetron HCl (Zofran) 4 mg IVPUSH ONETIME ONE Stop: 11/04/16 06:27 Last Admin: 11/04/16 06:34 Dose: 4 mg Ondansetron HCl (Zofran) 4 mg IVPUSH ONETIME ONE Stop: 11/04/16 08:43 Last Admin: 11/04/16 08:47 Dose: 4 mg Sucralfate (Carafate) 1 gm PO ONETIME ONE Stop: 11/04/16 06:27 Last Admin: 11/04/16 06:42 Dose: 1 gm - Exam General: alert, oriented Lungs: Clear to auscultation, Normal respiratory effort Cardiovascular: Regular Rate, Regular Rhythm Abdomen: bowel sounds present, soft, no tenderness, no distension Extremities: no edema Skin: warm, dry, intact Neurological: no new focal deficit - Problem List Review Problem List Initiated/Reviewed/Updated: Yes - My Orders Last 24 Hours: My Active Orders 11/07/16 Dinner Advance Diet Instructions [DIET] - Plan Plan:: This 56 year old male admitted for acute pancreatitis and splenic vein thrombosis 1. Acute pancreatitis with necrosis: pain improving, on oral pain medications, will advance diet as tolerated 2. Splenic vein thrombosis: on Lovenox 1mg/kg BID in the short term to decrease propagation of current partial thrombosis. Will monitor. Dispo: likely discharge home tomorrow.
[2016-11-07] MEDS ORDERED: Acetaminophen 325 MG Tab PO PRN (22:00)
[2016-11-08 06:20] LABS: CHLORIDE,CL 106 mmol/L (98-110); SODIUM,NA 140 mmol/L (136-146)
[2016-11-08 07:42] VITALS: BP 183/110
[2016-11-08] MEDS: Enoxaparin 100 MG/1 ML Syringe SUBCUT SCH (09:14)
[2016-11-08] MEDS ORDERED: Potassium Chloride 20 MEQ Tab.ER PO ONE (09:45)
[2016-11-08] MEDS ORDERED: Rivaroxaban 15 MG Tab PO SCH (12:15)
--- NOTE | 2016-11-08 12:19 | PCM.DCSUM1 ---
Discharge Summary - Hospital Course Brief History: This 56 year old male, otherwise healthy, presented to the ED with complaints of abdominal pain. He reports this pain started on Tuesday morning, sort of dull in nature, it waxed and waned intermittently throughout the weekend and then yesterday morning it worsened to 10/10 sharp shooting pain. He reports same nausea with emesis x1. He did not eat anything since yesterday. He reports fevers at home measuring 101, he would take tylenol and then it would improve and slowly climb again. He reports nothing makes the pain better, but movement and breathing increases the pain. He confirms alcohol use, but drinks 2-3 beers 1-2 x per week, but denies daily drinking. He does smoke 1/ 2 ppk and denies recreational drug use. He cuco any cardiac or pumonary history. No DM or liver or renal disease. His father had a hx of cancer, but the source was not known due to the extensive nature of it when it was diagnosed. In the ED, leukocytosis noted, 20,450, hgb 19.5 Hct 53.8, amylase 101, lipase 186, Ua negative. Lactate 1.2, Glucose 120. Abdominal U/S obtained with showed common bile duct 4mm, no cholelithasis or gallbladder wall thickening. CT abdomen was also obtained which reported moderate stranding near the tail of the pancreas with a hypoechancing component noted with the tail of the pancreas, likely representing pancreatitis with necrosis, follow up imaging maybe beneficial to rule out underlying neoplastic process, also noted is a partial thrombus of the adjacent splenic vein, small hiatal hernia and mild prostatomegaly. He was admitted for acute pancreatitis and acute partial thrombis in splenic vein. Has no current PCP. - Discharge Data Discharge Date: 11/08/16 Discharge Disposition: Home, Self-Care 01 Condition: Good - Discharge Diagnosis/Problem(s) (1) Acute pancreatitis with uninfected necrosis SNOMED Code(s): 432073663, 462101563 ICD Code: K85.91 - ACUTE PANCREATITIS WITH UNINFECTED NECROSIS, UNSPECIFIED Status: Acute Qualifiers: Pancreatitis type: unspecified pancreatitis type Qualified Code(s): K85.91 - Acute pancreatitis with uninfected necrosis, unspecified (2) Splenic vein thrombosis SNOMED Code(s): 53264206 ICD Code: I82.890 - ACUTE EMBOLISM AND THROMBOSIS OF OTHER SPECIFIED VEINS Status: Acute (3) Atypical chest pain SNOMED Code(s): 011192058 ICD Code: R07.89 - OTHER CHEST PAIN Status: Resolved (4) Hypertension SNOMED Code(s): 17473541 ICD Code: I10 - ESSENTIAL (PRIMARY) HYPERTENSION Status: Acute Qualifiers: Hypertension type: essential hypertension Qualified Code(s): I10 - Essential (primary) hypertension - Patient Instructions Diet: Regular Diet as Tolerated (low fat) Activity: As Tolerated Driving: May Drive Today Showering/Bathing: May Shower Notify Provider of: Fever, Increased Pain, Swelling and Redness, Drainage, Nausea and/or Vomiting Other/Special Instructions: Avoid alcohol - Discharge Plan Prescriptions/Med Rec: Rivaroxaban [Xarelto] 15 mg PO BID #41 tablet Home Medications: Home Meds Rivaroxaban [Xarelto] 15 mg PO BID #41 tablet 11/08/16 [Rx] Patient Handouts: Rivaroxaban oral tablets, Acute Pancreatitis, [id number], Chest Wall Pain, [id number], Abdominal Pain, Adult, [id number], Hypertension , [id number] Referrals: Jack Hawley DO [Physician] - 11/11/16 11:30 am - Discharge Summary/Plan Comment DC Time >30 min.: No Discharge Summary/Plan Comment: Discharge Diagnoses Alcoholic pancreatitis with necrosis Splenic vein thrombosis Reyes was admitted was treated with IV fluid resuscitation, analgesia and antiemetics for pancreatitis. Abd U/S obtained which was negative for gallbladder disease or stones. CT did show necrosis present, will need follow up CT imaging. Once pain improved diet was started and has improved since. He is tolerating regular diet today and eager for discharge. Regarding partial splenic vein thrombosis, he was anticoagulated with Lovenox during his stay and transitioned to Xarelto today. He will need to remain on anticoagulation for approximately 6 months. He will be set up with PCP here in town and a follow up will be scheduled. he was educated to stay on low fat diet and avid alcohol consumption. He is to return to clinic or ED if concerns should arise. - General Info Date of Service: 11/08/16 Admission Dx/Problem (Free Text: Acute pancreatitis Subjective Update: No further abdominal pain, tolerating regular diet. Ready for discharge. No chest pain or palpitations or SOB. Functional Status: Reports: pain controlled, tolerating diet, ambulating, urinating - Review of Systems General: Reports: No Symptoms. Denies: Fever Pulmonary: Reports: no symptoms. Denies: shortness of breath Cardiovascular: Reports: No Symptoms. Denies: Chest Pain Gastrointestinal: Reports: No symptoms. Denies: Abdominal pain, Constipation, Decreased appetite Genitourinary: Reports: no symptoms. Denies: dysuria, frequency, burning Musculoskeletal: Reports: no symptoms Skin: Reports: no symptoms Neurological: Reports: No Symptoms Psychiatric: Reports: no symptoms - Patient Data Vitals - Most Recent: Last Vital Signs Temp 98.1 F 11/08/16 07:41 Pulse 89 11/08/16 07:41 Resp 16 11/08/16 07:41 BP 183/110 H 11/08/16 07:41 Pulse Ox 94 L 11/08/16 07:41 Weight - Most Recent: 87.18 kg I&O - Last 24 hours: Intake & Output 11/07/16 11/08/16 11/08/16 22:59 06:59 14:59 Intake Total 440 520 Output Total 925 400 Balance -485 120 Lab Results - Last 24 hrs: Laboratory Results - last 24 hr 11/08/16 11/08/16 Range/Units 05:38 05:38 WBC 11.08 H (4.0-11.0) K/uL RBC 4.15 L (4.50-5.90) M/uL Hgb 13.4 (13.0-17.0) g/dL Hct 38.6 (38.0-50.0) % MCV 93.0 (80.0-98.0) fL MCH 32.3 H (27.0-32.0) pg MCHC 34.7 (31.0-37.0) g/dL RDW Std Deviation 47.4 (28.0-62.0) fl RDW Coeff of Nicolasa 14 (11.0-15.0) % Plt Count 200 (150-400) K/uL MPV 10.50 (7.40-12.00) fL Neut % (Auto) 76.8 (48.0-80.0) % Lymph % (Auto) 11.0 L (16.0-40.0) % Cooper % (Auto) 11.2 (0.0-15.0) % Eos % (Auto) 0.5 (0.0-7.0) % Baso % (Auto) 0.5 (0.0-1.5) % Neut # (Auto) 8.5 H (1.4-5.7) K/uL Lymph # (Auto) 1.2 (0.6-2.4) K/uL Cooper # (Auto) 1.2 H (0.0-0.8) K/uL Eos # (Auto) 0.1 (0.0-0.7) K/uL Baso # (Auto) 0.1 (0.0-0.1) K/uL Nucleated RBC % 0.0 /100WBC Nucleated RBCs # 0 K/uL Sodium 140 (136-146) mmol/L Potassium 2.9 L (3.5-5.1) mmol/L Chloride 106 (98-110) mmol/L Carbon Dioxide 24 (21-31) mmol/L BUN 5 L (6.0-23.0) mg/dL Creatinine 0.7 (0.6-1.5) mg/dL Est Cr Clr Drug Dosing 114.00 mL/min Estimated GFR (MDRD) > 60.0 ml/min Glucose 110 (60-110) mg/dL Calcium 8.3 L (8.8-10.8) mg/dL Total Bilirubin 1.2 (0.1-1.5) mg/dL AST 63 H (5-40) IU/L ALT 60 H (8-54) IU/L Alkaline Phosphatase 139 (40-150) Total Protein 5.8 L (6.0-8.0) g/dL Albumin 3.0 L (3.5-5.0) g/dL Globulin 2.8 (2.0-3.5) g/dL Albumin/Globulin Ratio 1.1 L (1.3-2.8) Med Orders - Current: Current Medications Acetaminophen (Tylenol) 650 mg PO Q4H PRN PRN Reason: Pain Last Admin: 11/08/16 01:28 Dose: 650 mg Albuterol/Ipratropium (Duoneb 3.0-0.5 Mg/3 Ml) 3 ml NEB Q4HRRT PRN PRN Reason: Shortness Of Breath/wheezing Ondansetron HCl (Zofran) 4 mg IVPUSH Q4H PRN PRN Reason: Nausea Last Admin: 11/07/16 03:19 Dose: 4 mg Oxycodone HCl (Oxycodone) 5 mg PO Q4H PRN PRN Reason: Pain Last Admin: 11/07/16 03:19 Dose: 5 mg Rivaroxaban (Xarelto) 15 mg PO BID [facility] Sodium Chloride (Saline Flush) 10 ml FLUSH ASDIRECTED PRN PRN Reason: Keep Vein Open Sodium Chloride (Saline Flush) 2.5 ml FLUSH ASDIRECTED PRN PRN Reason: Keep Vein Open Discontinued Medications Acetaminophen (Tylenol Extra Strength) 500 mg PO ONETIME ONE Stop: 11/04/16 06:50 Last Admin: 11/04/16 06:56 Dose: 500 mg Diphenhydramine HCl (Benadryl) 25 mg IVPUSH ONETIME ONE Stop: 11/04/16 06:50 Last Admin: 11/04/16 06:55 Dose: 25 mg Enoxaparin Sodium (Lovenox) 90 mg SUBCUT Q12HR [facility] Last Admin: 11/08/16 09:14 Dose: Not Given Hydralazine HCl (Apresoline) 10 mg IVPUSH ONETIME ONE Stop: 11/04/16 08:10 Last Admin: 11/04/16 08:13 Dose: 10 mg Hydromorphone HCl (Dilaudid) 1 mg IVPUSH ONETIME ONE Stop: 11/04/16 08:43 Last Admin: 11/04/16 08:47 Dose: 1 mg Hydromorphone HCl (Dilaudid) 1 mg IVPUSH Q2H PRN PRN Reason: Pain Last Admin: 11/06/16 07:40 Dose: 1 mg Sodium Chloride (Normal Saline) 1,000 mls @ 999 mls/hr IV .Bolus ONE Stop: 11/04/16 09:59 Last Admin: 11/04/16 09:02 Dose: 999 mls/hr Sodium Chloride (Normal Saline) 1,000 mls @ 999 mls/hr IV .Bolus ONE Stop: 11/04/16 11:19 Last Admin: 11/04/16 10:27 Dose: 999 mls/hr Sodium Chloride (Normal Saline) 1,000 mls @ 999 mls/hr IV .Bolus ONE Stop: 11/04/16 11:21 Last Admin: 11/04/16 11:30 Dose: 999 mls/hr Sodium Chloride (Normal Saline) 1,000 mls @ 200 mls/hr IV ASDIRECTED [facility] Last Admin: 11/07/16 06:37 Dose: 200 mls/hr Iopamidol (Isovue Multipack-370 (76%)) 100 ml IVPUSH ONETIME STA Stop: 11/04/16 09:56 Last Admin: 11/04/16 09:56 Dose: 100 ml Metoprolol Tartrate (Lopressor) 5 mg IVPUSH Q6H PRN PRN Reason: Hypertension Morphine Sulfate (Morphine) 4 mg IVPUSH ONETIME ONE Stop: 11/04/16 06:27 Last Admin: 11/04/16 06:34 Dose: 4 mg Nitroglycerin (Nitro-Bid 2%) 1 gm TOP ONETIME ONE Stop: 11/04/16 06:48 Last Admin: 11/04/16 06:56 Dose: 1 gm Ondansetron HCl (Zofran) 4 mg IVPUSH ONETIME ONE Stop: 11/04/16 06:27 Last Admin: 11/04/16 06:34 Dose: 4 mg Ondansetron HCl (Zofran) 4 mg IVPUSH ONETIME ONE Stop: 11/04/16 08:43 Last Admin: 11/04/16 08:47 Dose: 4 mg Potassium Chloride (Klor-Con M20) 40 meq PO ONETIME ONE Stop: 11/08/16 09:46 Last Admin: 11/08/16 09:49 Dose: 40 meq Sucralfate (Carafate) 1 gm PO ONETIME ONE Stop: 11/04/16 06:27 Last Admin: 11/04/16 06:42 Dose: 1 gm - Exam General: Reports: alert, oriented, cooperative, no acute distress HEENT: Reports: Pupils equal, Pupils reactive, EOMI, Mucous membr. moist/pink Neck: Reports: supple Lungs: Reports: Clear to auscultation, Normal respiratory effort Cardiovascular: Reports: Regular Rate, Regular Rhythm Abdomen: Reports: bowel sounds present, soft, no tenderness, no distension Extremities: Reports: no edema, normal pulses Psy/Mental Status: Reports: alert, normal affect, normal mood *Q Meaningful Use (DIS) - VTE *Q VTE Criteria *Q: - Stroke *Q Stroke Criteria *Q: - AMI *Q AMI Criteria *Q:
== END 2016-11-08 12:44 | disposition home or self-care (01) | DRG 439 ==
LOC: MW.ED 06:05 → MW.MS 09:02 → MW.ED 09:35 → OBSVTOIN 12:02 → MW.MS 12:13
PROVIDERS: ADMIT Internal Medicine; ATTEND Internal Medicine
DX: K85.91 Acute pancreatitis with uninfected necrosis, unspecified (principal); I82.890 Acute embolism and thrombosis of other specified veins; R07.89 Other chest pain; I10 Essential (primary) hypertension; I49.9 Cardiac arrhythmia, unspecified; F17.200 Nicotine dependence, unspecified, uncomplicated; Z88.8 Allergy status to other drugs, medicaments and biological substances
CPT/HCPCS: 36415; 71010; 71010-26; 74177; 74177-26; 76705; 76705-26; 80053; 80061; 81001; 82150; 82272; 83036; 83605; 83690; 83735; 84484; 85014; 85018; 85025; 87040; 93005; 96361; 96374; 96375; 96376; 99285; 99285-25; A9270-GY; J0360; J1170; J1200; J1650; J2270; J2405; J7040; Q9967